=== PATIENT | male | born 1980 | race Asian ===

== ENCOUNTER 2018-12-18 09:56 | Emergency (ER) | payer SELFPAY ==
[~2018-12-18] VITALS: Ht 188 cm; Wt 81.6 kg
--- NOTE | 2018-12-18 10:15 | NUR ---
at bedside to examine patient.
--- NOTE | 2018-12-18 10:27 | NUR ---
dcd intructions given to pt. who verbalized understanding. left room [id number]. vitals stable, steady gait.
== END 2018-12-18 10:31 | disposition home or self-care (01) ==
LOC: ER 09:56
DX: L08.9 Local infection of the skin and subcutaneous tissue, unspecified (principal)
CPT/HCPCS: A4663